=== PATIENT | male | born 1965 | race Caucasian/White ===

== ENCOUNTER 2017-01-09 01:05 | Emergency (ER) | payer MEDICAID ==
[~2017-01-09] VITALS: Ht 177.8 cm; Wt 82.0 kg
[2017-01-09 01:10] VITALS: BP 207/118; PULSE 82; RESP 18; TEMP 98.8; O2SAT 97
--- NOTE | 2017-01-09 01:40 | PD ---
HPI Chief Complaint: Psychiatric Symptoms Time Seen by Provider: 01:34 Travel History International Travel<30 days: No Contact w/Intl Traveler<30days: No Traveled to known affect area: No History of Present Illness HPI 51-year-old white male presents to emergency department under Thakkar act by PD. The patient allegedly has made suicidal statements in the past regarding shooting himself with a gun and burning down the house. The patient states that over the past year he has been having problems dealing with his and his children. He states that his shoulder and now that they have gotten older have become more inconsiderate and self-centered. He states that their interactions have not been like they have been in the past. He is becoming very frustrated and angry. The patient alleges that he had a argument with his daughter earlier today over repairing car. The patient states that after the argument he went and was going to clean up around the yard and he had taken a rope and made a spool with the rope and was going into the barn. The patient states that his overreacted and called police stating that he was going into the barn to hang himself. He states that he has no intention on hurting himself. He denies any suicidal homicidal ideation. The patient does admit to having made statements in the past suicidal nature but she states that he has not said anything recently. He states that this has been going on for the past year. The patient reports a history of hypertension and noncompliance. He denies any other medical problems. He denies any alcohol or drugs. He denies tobacco. No toxic ingestions. [facility] Past Medical History Narrative Medical Hypertension Hypertension: Yes Tetanus Vaccination: Unknown Past Surgical History Surgical History: No Previous Surgery Social History Alcohol Use: No Tobacco Use: No Substance Use: No Allergies-Medications (Allergen,Severity, Reaction): Coded Allergies: No Known Allergies (Unverified , 01/09/17) Reported Meds & Prescriptions Reported Meds & Active Scripts Active No Active Prescriptions or Reported Medications Review of Systems Except as stated in HPI: all other systems reviewed are Neg Psychiatric: Positive: Depression, Mood Disorder, No: Anxiety, Suicidal Ideations, Disorder of Thought, Substance Abuse, Homicidal Ideation Physical Exam Narrative GENERAL: Well-nourished, well-developed patient. SKIN: Warm and dry. HEAD: Normocephalic and atraumatic. EYES: No scleral icterus. No injection or drainage. ENT: No nasal drainage noted. Mucous membranes pink. Airway patent. NECK: Supple, trachea midline. Moves head freely without obvious discomfort. CARDIOVASCULAR: Regular rate and rhythm without murmurs, gallops, or rubs. RESPIRATORY: Breath sounds equal bilaterally. No accessory muscle use. GASTROINTESTINAL: Abdomen soft, non-tender, nondistended. EXTREMITIES: No cyanosis or edema. BACK: Nontender without obvious deformity. No CVA tenderness. NEURO: Patient is alert and oriented. no sensorimotor deficits. Nonfocal. Normal speech. PSYCH: No delusions. No auditory or visual hallucinations. Data Data Last Documented VS Vital Signs Date Time Temp Pulse Resp B/P Pulse Ox O2 Delivery O2 Flow Rate FiO2 01/09/17 02:30 75 16 175/105 97 Room Air 01/09/17 01:10 98.8 Orders Complete Blood Count With Diff (01/09/17 01:26) Comprehensive Metabolic Panel (01/09/17 01:26) Psych Screen (01/09/17 01:26) Drug Screen, Random Urine (01/09/17 01:26) Alcohol (Ethanol) (01/09/17 01:26) Salicylates (Aspirin) (01/09/17 01:26) Tylenol (Acetaminophen) (01/09/17 01:26) Clonidine (Catapres) (01/09/17 01:45) Labs Laboratory Tests Test 01/09/17 01:34 White Blood Count 8.6 TH/MM3 Red Blood Count 5.23 MIL/MM3 Hemoglobin 15.1 GM/DL Hematocrit 43.9 % Mean Corpuscular Volume 83.8 FL Mean Corpuscular Hemoglobin 28.9 PG Mean Corpuscular Hemoglobin 34.4 % Concent Red Cell Distribution Width 13.2 % Platelet Count 224 TH/MM3 Mean Platelet Volume 7.9 FL Neutrophils (%) (Auto) 61.8 % Lymphocytes (%) (Auto) 27.4 % Monocytes (%) (Auto) 8.3 % Eosinophils (%) (Auto) 2.1 % Basophils (%) (Auto) 0.4 % Neutrophils # (Auto) 5.3 TH/MM3 Lymphocytes # (Auto) 2.3 TH/MM3 Monocytes # (Auto) 0.7 TH/MM3 Eosinophils # (Auto) 0.2 TH/MM3 Basophils # (Auto) 0.0 TH/MM3 CBC Comment DIFF FINAL Differential Comment Sodium Level 140 MEQ/L Potassium Level 3.6 MEQ/L Chloride Level 106 MEQ/L Carbon Dioxide Level 28.7 MEQ/L Anion Gap 5 MEQ/L Blood Urea Nitrogen 9 MG/DL Creatinine 1.15 MG/DL Estimat Glomerular Filtration 67 ML/MIN Rate Random Glucose 113 MG/DL Calcium Level 9.6 MG/DL Total Bilirubin 0.5 MG/DL Aspartate Amino Transf 17 U/L (AST/SGOT) Alanine Aminotransferase 37 U/L (ALT/SGPT) Alkaline Phosphatase 133 U/L Total Protein 8.0 GM/DL Albumin 4.4 GM/DL Salicylates Level LESS THAN 1.7 MG/DL Urine Opiates Screen NEG Acetaminophen Level LESS THAN 2.0 MCG/ML Urine Barbiturates Screen NEG Urine Amphetamines Screen NEG Urine Benzodiazepines Screen NEG Urine Cocaine Screen NEG Urine Cannabinoids Screen NEG Ethyl Alcohol Level LESS THAN 3 MG/DL MDM Medical Decision Making Medical Screen Exam Complete: Yes Emergency Medical Condition: Yes Medical Record Reviewed: Yes Interpretation(s) Laboratory Tests Test 01/09/17 01:34 White Blood Count 8.6 TH/MM3 Red Blood Count 5.23 MIL/MM3 Hemoglobin 15.1 GM/DL Hematocrit 43.9 % Mean Corpuscular Volume 83.8 FL Mean Corpuscular Hemoglobin 28.9 PG Mean Corpuscular Hemoglobin 34.4 % Concent Red Cell Distribution Width 13.2 % Platelet Count 224 TH/MM3 Mean Platelet Volume 7.9 FL Neutrophils (%) (Auto) 61.8 % Lymphocytes (%) (Auto) 27.4 % Monocytes (%) (Auto) 8.3 % Eosinophils (%) (Auto) 2.1 % Basophils (%) (Auto) 0.4 % Neutrophils # (Auto) 5.3 TH/MM3 Lymphocytes # (Auto) 2.3 TH/MM3 Monocytes # (Auto) 0.7 TH/MM3 Eosinophils # (Auto) 0.2 TH/MM3 Basophils # (Auto) 0.0 TH/MM3 CBC Comment DIFF FINAL Differential Comment Sodium Level 140 MEQ/L Potassium Level 3.6 MEQ/L Chloride Level 106 MEQ/L Carbon Dioxide Level 28.7 MEQ/L Anion Gap 5 MEQ/L Blood Urea Nitrogen 9 MG/DL Creatinine 1.15 MG/DL Estimat Glomerular Filtration 67 ML/MIN Rate Random Glucose 113 MG/DL Calcium Level 9.6 MG/DL Total Bilirubin 0.5 MG/DL Aspartate Amino Transf 17 U/L (AST/SGOT) Alanine Aminotransferase 37 U/L (ALT/SGPT) Alkaline Phosphatase 133 U/L Total Protein 8.0 GM/DL Albumin 4.4 GM/DL Salicylates Level LESS THAN 1.7 MG/DL Urine Opiates Screen NEG Acetaminophen Level LESS THAN 2.0 MCG/ML Urine Barbiturates Screen NEG Urine Amphetamines Screen NEG Urine Benzodiazepines Screen NEG Urine Cocaine Screen NEG Urine Cannabinoids Screen NEG Ethyl Alcohol Level LESS THAN 3 MG/DL Differential Diagnosis MDM: High Differential diagnoses: Schizophrenia, schizoaffective disorder, bipolar, anxiety, depression, adjustment reaction, mood disorder NOS, ODD, depressive disorder NOS, dementia, dementia with agitation, psychosis NOS, substance induced mood disorder, intermittent explosive disorder, Asperger syndrome, infection,electrolyte abnormality, malingering. Narrative Course Mental health screening discussed with the patient. Psychiatric screen ordered. The patient has elevated blood pressure. This is treated with clonidine 0.2 mg by mouth. Routine laboratory tests sent for analysis. The patient been medically cleared. The patient will need to continue blood pressure initially. This is medical clearance for psychiatric admission, hypertension Diagnosis Primary Impression: Medical clearance for psychiatric admission Additional Impression: Hypertension Qualified Code: I10 - Essential hypertension Scripts No Active Prescriptions or Reported Meds Condition: Donovan Ramirez Jan 09, 2017 01:40
[2017-01-09] MEDS ORDERED: cloNIDine HCL 0.2 MG TAB PO ONE (01:45)
[2017-01-09 01:49] LABS: AUTOMATED NEUTROPHIL # 5.3 TH/MM3 (1.8-7.7); BASOPHIL % 0.4 % (0.0-2.0); EOSINOPHIL # 0.2 TH/MM3 (0-0.4); EOSINOPHIL % 2.1 % (0.0-4.0); HEMATOCRIT 43.9 % (39.0-51.0); HEMO FLAGS DIFF FINAL; LYMPH % 27.4 % (9.0-44.0); LYMPHOCYTE # 2.3 TH/MM3 (1.0-4.8); MEAN CELL VOLUME 83.8 FL (80.0-100.0); MEAN CORPUSCULAR HEMOGLOBIN 28.9 PG (27.0-34.0); MEAN CORPUSCULAR HGB CONC 34.4 % (32.0-36.0); MONO % 8.3 % (0.0-8.0); NEUT % 61.8 % (16.0-70.0); PLATELET COUNT 224 TH/MM3 (150-450); RED BLOOD COUNT 5.23 MIL/MM3 (4.50-5.90); RED CELL DISTRIBUTION WIDTH 13.2 % (11.6-17.2); WHITE BLOOD COUNT 8.6 TH/MM3 (4.0-11.0)
[2017-01-09 01:57] LABS: AMPHETAMINE, URINE NEG (NEG); BARBITURATES, URINE NEG (NEG); COCAINE, URINE NEG (NEG)
[2017-01-09 02:11] LABS: ANION GAP 5 MEQ/L (5-15)
[2017-01-09 02:23] LABS: ALKALINE PHOSPHATASE 133 U/L (45-117); ALT (GPT) 37 U/L (12-78); AST (GOT) 17 U/L (15-37); BICARBONATE 28.7 MEQ/L (21.0-32.0); BLOOD UREA NITROGEN 9 MG/DL (7-18); CHLORIDE 106 MEQ/L (98-107); GLOMERULAR FILTRATION RATE 67 ML/MIN (>89); POTASSIUM 3.6 MEQ/L (3.5-5.1); SODIUM (NA) 140 MEQ/L (136-145); TOTAL BILIRUBIN ADULT 0.5 MG/DL (0.2-1.0)
[2017-01-09 02:24] LABS: ACETAMINOPHEN LESS THAN 2.0 MCG/ML (10.0-30.0)
[2017-01-09 02:30] VITALS: BP 175/105; PULSE 102; PULSE 75; RESP 16; O2SAT 97
[2017-01-09 06:00] VITALS: BP 157/106; PULSE 74; RESP 16; TEMP 96; O2SAT 99
[2017-01-09 11:43] VITALS: BP 170/103; PULSE 68; RESP 18; O2SAT 100
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
== END 2017-01-09 17:34 | disposition home or self-care (01) ==
LOC: NEPD 01:05 → NEPJ 17:34
DX: Z02.89 Encounter for other administrative examinations (principal); I10 Essential (primary) hypertension; F43.25 Adjustment disorder with mixed disturbance of emotions and conduct
CPT/HCPCS: 80053; 80307; 85025; 99283